=== PATIENT | female | born 1985 | race American Indian/Alaskan Native ===

== ENCOUNTER 2017-11-15 09:58 | Outpatient (CLI) | payer OTHER | END 2017-11-15 09:59 | disposition home or self-care (01) | LOC: LABHHL 09:58 | PROVIDERS: ATTEND Surgery | DX: D24.2 Benign neoplasm of left breast (principal) | CPT/HCPCS: 88305 ==

== ENCOUNTER 2017-12-18 08:21 | Day surgery (SDC) | payer OTHER ==
[~2017-12-18 08:21] MED LIST: DEMEROL IV PRN; DILAUDID IV PRN; LACTATED RINGERS 1,000 ML IV SCH; TORADOL IV PRN; VERSED IV NR
[2017-12-18] MEDS ORDERED: ANCEF/STERILE WATER 2 GM/20 ML IV NR (09:00)
[2017-12-18] MEDS ORDERED: MARCAINE 0.25% INFILTRATI ONE ×4 (09:41→13:30)
[2017-12-18] MEDS ORDERED: XYLOCAINE 1% 20 mL ONE ×2 (09:41→12:33)
[2017-12-18] MEDS ORDERED: TRANSDERM-SCOP TD ONE (10:14)
[2017-12-18] MEDS ORDERED: PEPCID IV ONE (10:14)
--- NOTE | 2017-12-18 10:27 | Anesthesia Consultation ---
Anesthesia Consult and Med Hx Date of service: 12/18/17 - Airway Anesthetic Teeth Evaluation: Good ROM Head & Neck: Adequate Mental/Hyoid Distance: Adequate Mallampati Class: Class I Intubation Access Assessment: Good - Pulmonary Exam CTA: Yes - Cardiac Exam Cardiac Exam: RRR - Pre-Operative Health Status ASA Pre-Surgery Classification: ASA2 Proposed Anesthetic Plan: Local, MAC - Pulmonary Hx Smoking: No Hx Respiratory Symptoms: No - Cardiovascular System Hx Hypertension: No Hx Heart Attack/AMI: No Hx Cardia Arrhythmia: No - Central Nervous System CVA: No Hx Psychiatric Problems: No - Gastrointestinal Hx Gastroesophageal Reflux Disease: Yes (controlled) - Endocrine Hx Renal Disease: No Hx Liver Disease: No Hx Insulin Dependent Diabetes: No Hx Non-Insulin Dependent Diabetes: No Hx Thyroid Disease: No - Other Systems Hx Alcohol Use: Yes (OCCAS) Hx Substance Use: No Hx Cancer: No Hx Obesity: No - Additional Comments Anesthesia Medical History Comments: Hx PONV with GA.
--- NOTE | 2017-12-18 10:28 | Anesthesia Day of Surgery ---
Anesthesia Day of Surgery - Day of Surgery Patient Examined: Yes Patient H&P Reviewed: Yes Patient is NPO: Yes
--- NOTE | 2017-12-18 12:33 | Operative Report ---
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 Findings: Known left breast fibroadenoma of the upper outer quadrant and adjacent known mass with excisional biopsy performed Complications: None Drains: None Estimated blood loss: Minimal Disposition: PACU in good condition Indication for operative procedure: This is a 32-year-old lady with known left breast fibroadenoma at the 2:00 position. Patient wished to proceed wtih an excisional biopsy given symptomatic pain. Recommendation were to proceed with left breast excisional biopsy of fibroadenoma at the 2:00 position and adjacent mass as well. Patient wished to proceed with the above procedure. The patient was procedure in detail: The patient was taken to the operating room and was laid supine. General anesthesia was administered. The left breast fibroadenoma was palpable at the 2 o'clock position 5 cm from the nipple with adjacent palpable mass as well. The left breast was prepped and draped in the normal sterile operative fashion. Timeout was performed. A periareolar breast incision was made with a 15 blade knife at the 1:00 position with dissection taken down to the subcutaneous tissues. The fibroadenoma was encountered and was dissected free with the aid of the Bovie cautery. The known adjacent mass was palpable as well and was removed with the aid of the Bovie cautery. Both specimens were sent to pathology. Hemostasis was then obtained using the Bovie cautery. The breast cavity was irrigated and suctioned. Pus like drainage from the medial aspect of the nipple was noted of 1-2 cc, will discharge home on antibiotics. The deep breast tissues were approximated and closed using interrupted 3-0 Vicryl and skin brought together and closed using a running 4-0 Monocryl followed by skin affix. She tolerated surgery very well and was awakened from anesthesia without any complication and transported to PACU in good condition.
[2017-12-18] MEDS ORDERED: DECADRON ONE (12:37)
[2017-12-18] MEDS ORDERED: XYLOCAINE MPF 2% ONE (12:37)
[2017-12-18] MEDS ORDERED: DIPRIVAN 10 MG/ML IV ONE (12:37)
[2017-12-18] MEDS ORDERED: ZOFRAN ONE ×2 (12:38→14:47)
[2017-12-18] MEDS ORDERED: DILAUDID ONE (12:38)
[2017-12-18] MEDS ORDERED: NACL 0.9% 1000 ML 1,000 ML ONE (13:04)
[2017-12-18] MEDS ORDERED: WATER FOR IRRIG STERILE IR ONE (13:30)
[2017-12-18] MEDS ORDERED: XYLOCAINE 1% 20 mL INFILTRATI ONE ×2 (13:30)
[2017-12-18] MEDS ORDERED: NACL 0.9% IR ONE (13:55)
--- NOTE | 2017-12-18 14:25 | Short Stay Summary ---
Short Stay Documentation Date of service: 12/18/17 - History H&P: obtained from office - Allergies and Medications Current Medications: Allergies No Known Allergies Allergy (Verified 12/17/17 17:30) Home Medications Medication Instructions Recorded Confirmed Last Taken Type No Known Home Medications [No 12/17/17 12/17/17 Unknown History Reported Home Medications] Active Medications Hydromorphone HCl (Dilaudid) 0.5 mg IV Q10MIN PRN PRN Reason: Pain , Severe (7-10) Stop: 12/18/17 18:00 Lactated Ringer's (Lactated Ringers) 1,000 mls @ 100 mls/hr IV DIRECT FANG Last Admin: 12/18/17 09:36 Dose: 100 mls/hr Ketorolac Tromethamine (Toradol) 30 mg IV ONCE PRN PRN Reason: Pain, Moderate (4-6) Stop: 12/18/17 21:00 Meperidine HCl (Demerol) 25 mg IV ONCE PRN PRN Reason: Shivering Stop: 12/18/17 18:00 Midazolam HCl (Versed) 2 mg IV PREOP NR Stop: 12/18/17 23:59 Last Admin: 12/18/17 10:22 Dose: 2 mg - Brief post op/procedure progress note Date of procedure: 12/18/17 Pre-op diagnosis: 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 Post-op diagnosis: same Procedure: 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 Anesthesia: GETA Findings: 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
[2017-12-18] MEDS ORDERED: ZOFRAN IV ONE (14:47)
[2017-12-18 15:36] VITALS: BP 99/74
--- NOTE | 2017-12-18 16:50 | Post Anesthesia Evaluation ---
- Post Anesthesia Evaluation Patient Participated: Yes Airway Patent: Yes Stable Respiratory Function: Yes Nausea/Vomiting: No Temp > 96.8F: Yes Pain Manageable: Yes Adequeate Hydration: Yes Anesthesia Complications: No
== END 2017-12-18 16:06 | disposition home or self-care (01) ==
LOC: OR 08:21
PROVIDERS: ATTEND Surgery
DX: D24.2 Benign neoplasm of left breast (principal); K21.9 Gastro-esophageal reflux disease without esophagitis; Z79.899 Other long term (current) drug therapy; Z87.891 Personal history of nicotine dependence; Z98.890 Other specified postprocedural states; Z80.3 Family history of malignant neoplasm of breast; Z72.89 Other problems related to lifestyle
CPT/HCPCS: 19120; 88305; J0690; J1100; J1170; J1885; J2250; J2405; J2704; J7030; J7120